=== PATIENT | female | born 1985 | race Two or more races ===

== ENCOUNTER 2021-07-21 04:47 | Inpatient (IN) | payer OTHER ==
[~2021-07-21] VITALS: Ht 182.9 cm; Wt 102.5 kg
[2021-07-21] MEDS ORDERED: PRENATAL TABLE1 EAC1 PO (06:26)
[2021-07-21] MEDS ORDERED: LABETALOL HCL200 MG PO (06:27)
[2021-07-21] MEDS ORDERED: LOVENOX40 MG/0.4 SUBCUTANEO (06:29)
[2021-07-21] MEDS ORDERED: INTEGRA PLUS C1 EAC1 PO (06:29)
== END 2021-07-24 12:55 | disposition home or self-care (01) | DRG 787 ==
LOC: OB/GYN 04:47 → LDR 04:47 → OB/GYN 22:08
PROVIDERS: ADMIT Specialist; ATTEND Specialist
PROC: 4A1HXFZ Monitoring of Products of Conception, Cardiac Rhythm, External Approach (ICD-10-PCS; 2021-07-21)
PROC: 10D00Z1 Extraction of Products of Conception, Low, Open Approach (ICD-10-PCS; principal; 2021-07-21 19:00)
DX: O62.1 Secondary uterine inertia (principal); O99.12 Other diseases of the blood and blood-forming organs and certain disorders involving the immune mechanism complicating childbirth; D68.62 Lupus anticoagulant syndrome; O10.02 Pre-existing essential hypertension complicating childbirth; O77.0 Labor and delivery complicated by meconium in amniotic fluid; O64.0XX0 Obstructed labor due to incomplete rotation of fetal head, not applicable or unspecified; O69.81X0 Labor and delivery complicated by cord around neck, without compression, not applicable or unspecified; O99.824 Streptococcus B carrier state complicating childbirth; Z37.0 Single live birth; Z3A.38 38 weeks gestation of pregnancy